=== PATIENT | male | born 1950 | race Caucasian/White ===

== ENCOUNTER 2019-11-04 09:45 | Day surgery (SDC) | payer OTHER ==
[~2019-11-04] VITALS: Ht 172.7 cm; Wt 83.9 kg
[2019-11-04 10:13] VITALS: BP 146/85
--- NOTE | 2019-11-04 17:56 | NUR ---
RECEIVED PATIENT FROM OR RECORERY ROOM POST-OP OF RT QUARTER SAPHENOUS VEIN AND VARICOSE STRIPPING. PATIENT A/A/OX4; SPEECH CLEAR. V/S = 98.1-87-18-133/80; O2 SAT 95% ON RA. DRSG TO RLE D/C/I. RT TOES PINK AND WARM. DENIED NUMBNESS. C/O HUNGERY. BS = 93. IVHL'D TO L HAND. DENIED PAIN NOW. AND DAUGHTER AT BED SIDE.
[2019-11-04 18:05] VITALS: BP 133/80
[2019-11-04 18:07] VITALS: BP 133/80
--- NOTE | 2019-11-04 19:23 | NUR ---
TOLERATED DINNER. STATED INCISIONAL PAIN ON 01/31. DRSG D/C/I. D/C TO HOME PER ORDER. INSTRUCTION GIVEN. IV D/C'D. CONDITION STABLE.
== END 2019-11-04 19:30 | disposition home or self-care (01) ==
LOC: DS 09:45 → OR 14:30 → DS 14:30 → MU 17:29 → DS 19:30
DX: I83.813 Varicose veins of bilateral lower extremities with pain (principal); I10 Essential (primary) hypertension; I25.119 Atherosclerotic heart disease of native coronary artery with unspecified angina pectoris; E78.5 Hyperlipidemia, unspecified; E11.9 Type 2 diabetes mellitus without complications; Z79.84 Long term (current) use of oral hypoglycemic drugs; Z79.82 Long term (current) use of aspirin; Z79.899 Other long term (current) drug therapy; Z79.01 Long term (current) use of anticoagulants; Z95.818 Presence of other cardiac implants and grafts
CPT/HCPCS: 82962; G0378; J0690; J2175; J2250; J3010; J3490